=== PATIENT | female | born 1995 | race Caucasian/White ===

== ENCOUNTER → 2017-09-27 | Outpatient (CLI) | payer OTHER ==
--- NOTE | 2017-09-27 12:43 | US ---
EXAMINATION TYPE: US OB <= 14 wk fetus DATE OF EXAM: 09/27/2017 COMPARISON: NONE CLINICAL HISTORY: Z36 CONFIRM DATES AND VIABILITY. Dates EXAM PERFORMED: Transabdominal (TA) EXAM MEASUREMENTS: GESTATIONAL AGE / DATING Dates by LMP: (9 weeks/6 days) EDC: 04/26/2018 Dates by Current Scan: (9 weeks/4 days) EDC: 04/28/2018 MATERNAL ANATOMY Uterus: 12.3 x 6.3 x 5.8 cm Right Ovary: 2.5 x 1.4 x 1.5 cm Left Ovary: 2.7 x 2.0 x 2.4 cm Post CDS / Adnexa: no free fluid Presence of free fluid: no Presence of corpus luteal cyst: left ovarian hypoechoic lesion with peripheral flow =1.7 x 1.5 x 1.3 cm Presence of subchorionic bleed: no GESTATION / SURVEY CRL: 2.7 cm (9 weeks/4 days) MSD: seen, not measured Yolk Sac (normal less than 6mm): 3.7 mm Heart Rate: 172 bpm Rhythm: Normal IUP: Viable IUP Date of LMP: 07/20/2017, G1 Beta HcG (if available): Not available at this time Live single IUP measuring 9 weeks 4 days IMPRESSION: Single intrauterine gestation estimated at 9 weeks 4 days gestation based on crown-rump length. Cardi ac activity measures 172 bpm.
== END | disposition home or self-care (01) ==
LOC: RADUSWWP 08:18
PROVIDERS: ATTEND Obstetrics & Gynecology
DX: Z36.89 Encounter for other specified antenatal screening (principal); Z3A.09 9 weeks gestation of pregnancy
CPT/HCPCS: 76801

== ENCOUNTER 2018-04-22 06:35 | Inpatient (IN) | payer OTHER ==
[2018-04-22] MEDS ORDERED: CARBOPROST TROMETHAMINE 250 MCG/ML 1 ML AMP IM PRN (06:49)
[2018-04-22] MEDS ORDERED: TERBUTALINE 1 MG/ML VIAL SQ PRN (06:49)
[2018-04-22] MEDS ORDERED: METHYLERGONOVINE 0.2 MG/ML 1 ML AMP IM PRN (06:49)
[2018-04-22] MEDS ORDERED: OXYTOCIN 10 UNIT/ML 1 ML VIAL IM PRN (06:49)
[2018-04-22] MEDS ORDERED: LIDOCAINE 0.5% (PF) 5 MG/ML (50 ML SDV) SQ PRN (06:49)
[2018-04-22] MEDS ORDERED: OXYTOCIN 20 UNITS/1000 ML NS 1,000 ML IV SCH (07:00)
[2018-04-22] MEDS: LACTATED RINGERS 1,000 ML IV SCH ×3 (07:00→16:56)
[2018-04-22 07:11] LABS: Basophils # (A) 0.1 k/uL (0-0.2); Basophils % (A) 1 %; Eosinophils # (A) 0.1 k/uL (0-0.7); Eosinophils % (A) 1 %; HCT 33.2 % (34.0-46.0); HGB 11.3 gm/dL (11.4-16.0); Lymphocytes # (A) 1.9 k/uL (1.0-4.8); Lymphocytes % (A) 17 %; MCHC 34.1 g/dL (31.0-37.0); MCV 93.9 fL (80.0-100.0); Mean Platelet Volume 7.8; Monocytes # (A) 0.6 k/uL (0-1.0); Monocytes % (A) 6 %; Neutrophils # (A) 8.6 k/uL (1.3-7.7); Neutrophils % (A) 75 %; Platelet Count 215 k/uL (150-450); RBC 3.53 m/uL (3.80-5.40); RDW 12.7 % (11.5-15.5); WBC 11.4 k/uL (4.0-11.0)
[2018-04-22 07:32] VITALS: BMI 27.6
[2018-04-22] MEDS ORDERED: ROPIVACAINE 100 MG, fentaNYL (PF) 200 MCG in SODIUM CHLORIDE 0.9% 76 ML EPIDURAL ONE (14:39)
[2018-04-22] MEDS ORDERED: diphenhydrAMINE 50 MG/ML 1 ML VIAL IVP PRN ×2 (17:47)
[2018-04-22] MEDS ORDERED: LANOLIN CREAM 5 GM TUBE TOPICAL PRN (17:47)
[2018-04-22] MEDS ORDERED: BENZOCAINE/MENTHOL SPRAY 1 GM/SPRAY AEROSOL TOPICAL PRN (17:47)
[2018-04-22] MEDS ORDERED: WITCH HAZEL 1 EACH MED..PAD TOPICAL PRN (17:47)
[2018-04-22] MEDS ORDERED: diphenhydrAMINE 50 MG CAP PO PRN (17:47)
[2018-04-22] MEDS ORDERED: HYDROCORTISONE 2.5% RECTAL CREAM 30 GM TUBE RECTAL PRN (17:47)
[2018-04-22] MEDS ORDERED: ACETAMINOPHEN TAB 325 MG TAB PO PRN (17:47)
[2018-04-22] MEDS ORDERED: diphenhydrAMINE 25 MG CAP PO PRN (17:47)
[2018-04-22] MEDS ORDERED: SIMETHICONE 80 MG CHEWABLE PO PRN (17:47)
[2018-04-22] MEDS ORDERED: ZOLPIDEM 5 MG TAB PO PRN (17:47)
--- NOTE | 2018-04-22 17:50 | P.HPOB ---
History of Present Illness H&P Date: 04/22/18 Chief Complaint: Intrauterine at term: Induction of labor Summer is a 22-year-old at 39 weeks gestation arise for induction of labor. Her course has been relatively uncomplicated and she is feeling well at this time. Pertinent labs did include A+ blood type Rh and it was negative, rubella was immune, hepatitis B surface antigen was negative as was RPR and HIV. Her group B strep was also negative. In seeing her this morning she was dilated to 2 cm 80% effaced and -2 station. Artificial rupture membranes was performed and clear fluid is noted. heart tones in the 130s to 140s and category 1 tracing is noted. Anticipate spontaneous vaginal delivery and she anticipates use of an epidural for analgesia. We'll also use Pitocin for augmentation of labor. Past Medical History Past Medical History: Asthma History of Any Multi-Drug Resistant Organisms: None Reported Past Surgical History: No Surgical Hx Reported Past Psychological History: ADD/ADHD Smoking Status: Former smoker Past Alcohol Use History: None Reported Past Drug Use History: None Reported - Past Family History Mother Family Medical History: No Reported History Medications and Allergies Home Medications Medication Instructions Recorded Confirmed Type Pnv No.111/Iron/Folate/Dha 1 each PO DAILY 04/22/18 04/22/18 History [Nestabs One Softgel] Allergies Allergy/AdvReac Type Severity Reaction Status Date / Time No Known Allergies Allergy Verified 04/22/18 06:47 Exam Osteopathic Statement: *. No significant issues noted on an osteopathic structural exam other than those noted in the History and Physical/Consult. Vital Signs Temp Pulse Resp BP Pulse Ox 04/22/18 06:46 98 F 86 16 118/66 97 Intake and Output 04/22/18 04/22/18 04/22/18 06:59 14:59 22:59 Output Total 400 Balance -400 Output: Urine 400 Other: # Voids 1 Weight 77.564 kg - OBG Physical Exam Breast: both: normal (no masses) Abdomen: bowel sounds normal, no diffuse tenderness, no bruit present, no guarding noted, no hepatomegaly, no splenomegaly, no mass Vulva: both: normal Vagina: normal moisture, no discharge Cervix: no lesion, no discharge Uterus: normal size, normal contour Adnexa: both: normal Anus/Rectum: normal perianal skin, no rectal mass, no hemorrhoids, heme negative Results Result Diagrams: 04/22/18 06:50 Abnormal Lab Results - Last 24 Hours (Table) 04/22/18 Range/Units 06:50 WBC 11.4 H (4.0-11.0) k/uL RBC 3.53 L (3.80-5.40) m/uL Hgb 11.3 L (11.4-16.0) gm/dL Hct 33.2 L (34.0-46.0) % Neutrophils # 8.6 H (1.3-7.7) k/uL
--- NOTE | 2018-04-22 17:52 | P.PROBDLV ---
Vaginal Delivery Note - . Vaginal Delivery Note: Patient progressed complete and pushed with spontaneous vaginal delivery of a viable male over a secondary perineal laceration. Following delivery of the head anterior shoulder was difficult to bring down underneath the pubic bone, however I don't really think it was a true shoulder dystocia it was more a positional issue with the baby and the weight that the posterior shoulder was angled in the vagina. I did go posteriorly and move the posterior shoulder slightly which allowed the anterior shoulder easily be delivered underneath the pubic bone followed by the remainder the baby. Mouth nares were then bulb suctioned and baby was placed on mother's abdomen where the umbilical cord was allowed to pulsate for 30 seconds prior to clamping and cutting. Nursery personnel was then present to assume to assume care. Placenta was then delivered intact and Pitocin was added to the IV. Second-degree midline laceration was then repaired with 3-0 Vicryl in a running fashion. Following Xylocaine for analgesia. scores were 9 and 9 at one and 5 minutes respectfully and the weight was 7 lbs. 5 oz. Both mother and baby are stable following delivery.
[2018-04-22] MEDS: IBUPROFEN 600 MG TAB PO PRN (19:39)
[2018-04-22] MEDS: SENNOSIDES-DOCUSATE SODIUM 1 EACH TAB PO SCH (19:39)
[2018-04-23] MEDS: IBUPROFEN 600 MG TAB PO PRN ×2 (08:04→18:55)
[2018-04-23] MEDS: SENNOSIDES-DOCUSATE SODIUM 1 EACH TAB PO SCH ×2 (08:04→21:36)
--- NOTE | 2018-04-23 10:17 | P.PNOBGVD ---
Subjective - Subjective Principal diagnosis: post day 1 Interval history: doing very well. all questions answered. Patient reports: Reports appetite normal, Reports voiding normally, Reports pain well controlled, Reports ambulating normally : doing well Objective - Latest Vital Signs Latest vital signs: Vital Signs Temp Pulse Resp BP 04/23/18 07:51 98.5 F 94 16 131/66 04/23/18 04:00 98.7 F 82 16 116/69 04/23/18 00:00 98.6 F 79 16 108/68 04/22/18 20:00 97.7 F 83 16 126/68 04/22/18 19:58 97.7 F 80 16 126/68 04/22/18 19:28 97.7 F 80 16 131/65 04/22/18 18:57 100 16 125/59 04/22/18 18:43 99.3 F 99 16 129/66 04/22/18 18:28 94 20 116/58 04/22/18 18:13 93 16 115/56 04/22/18 17:58 103 H 16 122/63 Intake and Output 04/22/18 04/23/18 04/23/18 22:59 06:59 14:59 Output Total 550 Balance -550 Output: Urine 400 Estimated Blood Loss 150 Other: # Voids 1 1 1 - Exam Lungs: bilateral: normal Chest: Normal S1, Normal S2 Extremities: Present: normal Abdomen: Present: normal appearance, soft Uterus: Present: normal, firm
[2018-04-24 01:29] VITALS: RESP 18
[2018-04-24] MEDS: SENNOSIDES-DOCUSATE SODIUM 1 EACH TAB PO SCH (08:51)
[2018-04-24] MEDS: IBUPROFEN 600 MG TAB PO PRN (08:51)
--- NOTE | 2018-04-24 09:30 | P.DS ---
Providers Date of admission: 04/22/18 06:35 Expected date of discharge: 04/24/18 Attending physician: Rene Sharp Primary care physician: Stated None Hospital Course: Summary is doing very well day 2. She is ambulating, voiding, and she is tolerating her diet. She voices no complaints. Vital signs are stable and afebrile. Heart regular, lungs clear, extremities are without pain. Abdomen is soft uterus is firm and lochia is reported to be light. Prescription for Motrin has been report to the pharmacy and she'll follow up with me in 6 weeks. Discharge instructions thoroughly reviewed. She is stable for discharge this time. Patient Condition at Discharge: Good Plan - Discharge Summary New Discharge Prescriptions: New Ibuprofen [Motrin] 600 mg PO Q6HR PRN #30 tab PRN Reason: Pain No Action Pnv No.111/Iron/Folate/Dha [Nestabs One Softgel] 1 each PO DAILY Discharge Medication List Pnv No.111/Iron/Folate/Dha [Nestabs One Softgel] 1 each PO DAILY 04/22/18 [ History] Ibuprofen [Motrin] 600 mg PO Q6HR PRN #30 tab 04/24/18 [Rx] Follow up Appointment(s)/Referral(s): Rene Sharp DO [Doctor of Osteopathic Medicine] - 6 Weeks Activity/Diet/Wound Care/Special Instructions: No heavy lifting, limit stairs and driving, and pelvic rest. If any high temperatures, heavy bleeding, or severe pain call my office Discharge Disposition: HOME SELF-CARE
[2018-04-24 11:04] VITALS: BP 125/81; PULSE 71; TEMP 97.6
== END 2018-04-24 15:37 | disposition home or self-care (01) | DRG 775 ==
LOC: 4FBP 06:35
PROVIDERS: ADMIT Obstetrics & Gynecology; ATTEND Obstetrics & Gynecology
PROC: 10E0XZZ Delivery of Products of Conception, External Approach (ICD-10-PCS; principal; 2018-04-22)
PROC: 0KQM0ZZ Repair Perineum Muscle, Open Approach (ICD-10-PCS; 2018-04-22)
PROC: 00HU33Z Insertion of Infusion Device into Spinal Canal, Percutaneous Approach (ICD-10-PCS; 2018-04-22)
PROC: 3E0R3BZ Introduction of Anesthetic Agent into Spinal Canal, Percutaneous Approach (ICD-10-PCS; 2018-04-22)
DX: O99.344 Other mental disorders complicating childbirth (principal); Z37.0 Single live birth; F90.9 Attention-deficit hyperactivity disorder, unspecified type; O70.1 Second degree perineal laceration during delivery; Z87.09 Personal history of other diseases of the respiratory system; Z3A.39 39 weeks gestation of pregnancy; Z87.891 Personal history of nicotine dependence
CPT/HCPCS: 85025; 86850; 86900; 86901

== ENCOUNTER 2018-06-05 07:53 | Day surgery (SDC) | payer OTHER ==
[2018-06-04 09:09] VITALS: BMI 25.3
[~2018-06-05 07:53] MED LIST: DEXAMETHASONE SOD PHOSPHATE 10 MG/ML 1 ML VIAL IV ONE; HEPARIN SODIUM,PORCINE 5,000 UNIT/ML 1 ML VIAL SQ ONE; HYDROmorphone 0.5 MG/0.5 ML SYRINGE IVP PRN; LIDOCAINE 1% 20 ML VIAL (10MG/ML) FOR IV START INTRADERMA PRN; MIDAZOLAM 2 MG/2 ML VIAL IV PRN; ONDANSETRON 4 MG/2 ML VIAL IVP ONE; SCOPOLAMINE 1.5MG/72HR PATCH TRANSDERM ONE; ceFAZolin IN SWFI 2 GM/20 ML SYRINGE IVP ONE
[2018-06-05] MEDS: LACTATED RINGERS 1,000 ML IV SCH ×2 (08:30→09:46)
--- NOTE | 2018-06-05 08:48 | P.GSHP ---
History of Present Illness H&P Date: 06/05/18 Chief Complaint: Right upper quadrant pain This is a 22-year-old female who's had complaints of right quadrant pain. She is recently worked up and found have gallstones. She does today for laparoscopic cholecystectomy. Past Medical History Past Medical History: Asthma Additional Past Medical History / Comment(s): POST - BABY BORN 04/22/18., STATES HOSPITALIZED IN THE LAST MONTH AT [facility] FOR GALL BLADDER PAIN., ASTHMA (NO RX). History of Any Multi-Drug Resistant Organisms: None Reported Past Surgical History: No Surgical Hx Reported Additional Past Anesthesia/Blood Transfusion Reaction / Comment(s): PATIENT HAS NEVER RECEIVED ANESTHESIA. Past Psychological History: ADD/ADHD Smoking Status: Former smoker Past Alcohol Use History: None Reported Additional Past Alcohol Use History / Comment(s): QUIT SMOKING 10 MONTHS AGO . SMOKED 1 PPD OR LESS. SMOKED FOR 5 YEARS OFF AND ON. Past Drug Use History: None Reported - Past Family History Mother Family Medical History: Cancer Medications and Allergies Home Medications Medication Instructions Recorded Confirmed Type Acetaminophen Tab [Tylenol Tab] 650 mg PO DIRECTED 06/04/18 06/05/18 History Dicyclomine [Bentyl] 20 mg PO QID 06/04/18 06/05/18 History Famotidine 20 mg PO BID 06/04/18 06/05/18 History Ibuprofen [Motrin Ib] 400 mg PO DIRECTED PRN 06/04/18 06/05/18 History Allergies Allergy/AdvReac Type Severity Reaction Status Date / Time No Known Allergies Allergy Verified 06/04/18 08:44 Surgical - Exam Vital Signs Temp Pulse Resp BP Pulse Ox 97.2 F L 74 18 112/54 98 06/05/18 08:17 06/05/18 08:17 06/05/18 08:17 06/05/18 08:17 06/05/18 08:17 - General well developed, no distress - Eyes PERRL - ENT normal pinna - Neck no masses - Respiratory normal expansion - Cardiovascular Rhythm: regular - Abdomen Abdomen: soft Assessment and Plan Assessment: History of cholecystitis and cholelithiasis. Patient will undergo laparoscopic cholecystectomy.
[2018-06-05] MEDS ORDERED: BUPIVACAIN-EPI 0.25%-1:200,000 30 ML VIAL SQ ONE ×3 (08:57→10:03)
[2018-06-05] MEDS ORDERED: KETOROLAC 30 MG/ML 1 ML VIAL ONE (09:47)
[2018-06-05] MEDS ORDERED: fentaNYL (PF) 50 MCG/ML 2 ML AMP ONE (09:47)
[2018-06-05] MEDS ORDERED: NEOSTIGMINE 1 MG/ML 10 ML VIAL ONE (09:47)
[2018-06-05] MEDS ORDERED: PROPOFOL 10 MG/ML 20 ML VIAL IV ONE (09:47)
[2018-06-05] MEDS ORDERED: MEPERIDINE 50 MG/ML SYRINGE ONE (09:47)
[2018-06-05] MEDS ORDERED: MIDAZOLAM 2 MG/2 ML VIAL ONE (09:47)
[2018-06-05] MEDS ORDERED: GLYCOPYRROLATE 0.2 MG/ML 2 ML VIAL ONE (09:47)
[2018-06-05] MEDS ORDERED: ROCURONIUM BROMIDE 10 MG/ML 10 ML VIAL IV ONE (09:47)
[2018-06-05] MEDS ORDERED: LIDOCAINE 1% INJ 10MG/ML (20 ML MDV) ONE (09:47)
--- NOTE | 2018-06-05 10:29 | P.OP ---
Date of Procedure: 06/05/18 Preoperative Diagnosis: Cholecystitis Cholelithiasis Postoperative Diagnosis: Cholecystitis Cholelithiasis Procedure(s) Performed: Laparoscopic cholecystectomy Anesthesia: PENG Surgeon: Arik Brown Estimated Blood Loss (ml): 5 Pathology: other (Gallbladder) Condition: stable Disposition: PACU Description of Procedure: The patient was placed on the operating table. The patient received a general endotracheal tube anesthesia. The patients abdomen was prepped and draped in the usual sterile fashion. Through an infraumbilical stab incision, the fascia of the anterior abdominal wall was grasped with a pair of Kochers and then the Veress needle was placed in the peritoneal cavity. Position of the Veress needle was confirmed with positive drop test. The abdomen was then insufflated. After adequate insufflation, the 10 mm trocar was placed in the peritoneal cavity. Following this the laparoscope was placed in the peritoneal cavity. The patient was placed in the head-up, right side up position and then a 5 mm trocar was placed in the right lateral and right subcostal position under direct visualization. A 8 mm trocar was placed in the epigastric position. The gallbladder was grasped in the fundus and infundibulum. Traction on the gallbladder was placed in the lateral and the cephalad positions. The triangle of Calot was visualized.. The cystic duct was bluntly dissected until the union of the cystic duct and common bile duct was seen. The cystic duct was then divided and sealed with the Harmonic scissors. A PDS Endoloop was then placed throughout the cystic duct stump. The cystic artery divided and sealed with the Harmonic scissors. The gallbladder was then removed from the liver bed using Harmonic scissors. The gallbladder was then extracted through the epigastric port site. Operative field was checked for any bleeding spots and Harmonic scissors was used to coagulate the liver bed. The abdomen was irrigated. The trocars were removed. The skin was closed using interrupted 3-0 Vicryl suture. Dermabond dressing were applied. The patient tolerated the procedure well.
[2018-06-05 10:36] VITALS: TEMP 96.8
[2018-06-05 10:46] VITALS: RESP 16
[2018-06-05] MEDS ORDERED: HYDROcodone/APAP 7.5-325MG 1 EACH TAB PO ONE (11:30)
[2018-06-05 12:18] VITALS: BP 103/60; PULSE 68
== END 2018-06-05 12:27 | disposition home or self-care (01) ==
LOC: OR 07:53
PROVIDERS: ATTEND Surgery
DX: K80.10 Calculus of gallbladder with chronic cholecystitis without obstruction (principal); J45.909 Unspecified asthma, uncomplicated; F90.9 Attention-deficit hyperactivity disorder, unspecified type; K21.9 Gastro-esophageal reflux disease without esophagitis; Z87.891 Personal history of nicotine dependence; Z79.899 Other long term (current) drug therapy
CPT/HCPCS: 81025; 88304; 47562; J2250; J1644; J1100; J2710; J2175; J2405; J2001; J3010; J1885; J2704; J0690

== ENCOUNTER → 2019-03-16 | Outpatient (CLI) | payer OTHER | LOC: LABWHC1 10:24 | PROVIDERS: ATTEND Obstetrics & Gynecology | DX: N92.6 Irregular menstruation, unspecified (principal) | CPT/HCPCS: 36415; 84702 ==

== ENCOUNTER → 2019-07-20 | Outpatient (CLI) | payer OTHER | END | disposition home or self-care (01) | LOC: LABWHC1 11:18 | PROVIDERS: ATTEND Obstetrics & Gynecology | DX: N91.2 Amenorrhea, unspecified (principal) | CPT/HCPCS: 36415; 84702 ==

== ENCOUNTER 2024-06-22 18:39 | Outpatient (CLI) | payer OTHER ==
[2024-06-22 19:45] VITALS: BP 109/56; PULSE 71; RESP 16; TEMP 97.6
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
== END 2024-06-22 19:32 | disposition home or self-care (01) ==
LOC: FBPOP 18:39
PROVIDERS: ATTEND Obstetrics & Gynecology Obstetrics
DX: O9A.212 Injury, poisoning and certain other consequences of external causes complicating pregnancy, second trimester (principal); Z3A.20 20 weeks gestation of pregnancy; W01.0XXA Fall on same level from slipping, tripping and stumbling without subsequent striking against object, initial encounter; Z87.891 Personal history of nicotine dependence
CPT/HCPCS: 99213

== ENCOUNTER 2024-10-30 05:45 | Inpatient (IN) | payer OTHER ==
[2024-10-30] MEDS ORDERED: miSOPROStoL 200 MCG TAB PO PRN (05:47)
[2024-10-30] MEDS ORDERED: CARBOPROST TROMETHAMINE 250 MCG/ML 1 ML AMP IM PRN (05:47)
[2024-10-30] MEDS ORDERED: TRANEXAMIC 1,000 MG/100ML-NACL 1,000 MG in EMPTY BAG 1 BAG IV PRN (05:47)
[2024-10-30] MEDS ORDERED: METHYLERGONOVINE 0.2 MG/ML 1 ML AMP IM PRN (05:47)
[2024-10-30] MEDS ORDERED: OXYTOCIN 10 UNIT/ML 1 ML VIAL IM PRN (05:47)
[2024-10-30] MEDS ORDERED: miSOPROStoL 200 MCG TAB RECTAL PRN (05:47)
[2024-10-30] MEDS ORDERED: LIDOCAINE 0.5% (PF) 5 MG/ML (50 ML SDV) SQ PRN (05:47)
[2024-10-30] MEDS ORDERED: TERBUTALINE 1 MG/ML VIAL SQ PRN (05:47)
[2024-10-30] MEDS: LACTATED RINGERS 1,000 ML IV SCH (06:08)
[2024-10-30 06:22] LABS: Basophils # (A) 0.1 k/uL (0-0.2); Basophils % (A) 1 %; Eosinophils # (A) 0.1 k/uL (0-0.7); Eosinophils % (A) 1 %; HCT 32.4 % (34.0-46.0); Lymphocytes # (A) 2.8 k/uL (1.0-4.8); Lymphocytes % (A) 28 %; MCH 30.9 pg (25.0-35.0); MCV 90.8 fL (80.0-100.0); Mean Platelet Volume 9.3; Monocytes # (A) 0.6 k/uL (0-1.0); Monocytes % (A) 6 %; Neutrophils # (A) 6.3 k/uL (1.3-7.7); Neutrophils % (A) 63 %; Platelet Count 248 k/uL (150-450); RBC 3.57 m/uL (3.80-5.40); RDW 12.8 % (11.5-15.5); WBC 9.9 k/uL (3.8-10.6)
[2024-10-30] MEDS: OXYTOCIN 30 UNITS/500 ML NS 30 UNIT in SALINE 1 500ML.BAG IV SCH (06:24)
[2024-10-30 07:38] LABS: Amphetamine Screen,Urine Not Detected (NotDetected); Barbiturate Screen,Urine Not Detected (NotDetected); Benzodiazepines Screen,Urine Not Detected (NotDetected); Cocaine Screen,Urine Not Detected (NotDetected); Methadone Screen, Urine Not Detected (NotDetected); Opiate Screen,Urine Not Detected (NotDetected); Oxycodone Screen, Urine Not Detected (NotDetected); Phencyclidine Screen,Urine Not Detected (NotDetected); Tricyclic Antidepressant,Urine Not Detected (NotDetected); Urn Cannabinoid Scrn Not Detected (NotDetected)
--- NOTE | 2024-10-30 10:08 | P.HPOB ---
History of Present Illness H&P Date: 10/30/24 Chief Complaint: induction of labor 29 year old G2, P1 presents at 40 weeks gestation for induction of labor. Her cervix is 1 to 2 cm dilated, 70% effaced, -2 station. heart tones category 1. Review of Systems All systems: negative Constitutional: Denies chills, Denies fever Eyes: denies blurred vision, denies pain Ears, nose, mouth and throat: Denies headache, Denies sore throat Cardiovascular: Denies chest pain, Denies shortness of breath Respiratory: Denies cough Gastrointestinal: Denies abdominal pain, Denies diarrhea, Denies nausea, Denies vomiting Genitourinary: Denies dysuria, Denies hematuria Musculoskeletal: Denies myalgias Integumentary: Denies pruritus, Denies rash Neurological: Denies numbness, Denies weakness Psychiatric: Denies anxiety, Denies depression Endocrine: Denies fatigue, Denies weight change Past Medical History Past Medical History: Asthma History of Any Multi-Drug Resistant Organisms: None Reported Past Surgical History: Appendectomy, Cholecystectomy Past Anesthesia/Blood Transfusion Reactions: No Reported Reaction Additional Past Anesthesia/Blood Transfusion Reaction / Comment(s): PATIENT HAS NEVER RECEIVED ANESTHESIA. Past Psychological History: ADD/ADHD Smoking Status: Former smoker Past Alcohol Use History: None Reported Additional Past Alcohol Use History / Comment(s): QUIT SMOKING 10 MONTHS AGO . SMOKED 1 PPD OR LESS. SMOKED FOR 5 YEARS OFF AND ON. Past Drug Use History: None Reported - Past Family History Mother Family Medical History: Cancer Medications and Allergies Home Medications Medication Instructions Recorded Confirmed Type No Known Home Medications 06/22/24 10/30/24 History Allergies Allergy/AdvReac Type Severity Reaction Status Date / Time No Known Allergies Allergy Verified 10/30/24 05:46 Exam Osteopathic Statement: *. No significant issues noted on an osteopathic structural exam other than those noted in the History and Physical/Consult. Vital Signs Temp Pulse Resp BP Pulse Ox 10/30/24 05:59 96.2 F L 80 18 122/58 96 Intake and Output 10/29/24 10/30/24 10/30/24 22:59 06:59 14:59 Other: # Voids 1 Weight 88.451 kg Heart: Regular rate and rhythm Lungs: Clear to auscultation bilaterally Abdomen: Soft, nontender Extremities: Negative Homans sign Results Result Diagrams: 10/30/24 06:03 Abnormal Lab Results - Last 24 Hours (Table) 10/30/24 Range/Units 06:03 RBC 3.57 L (3.80-5.40) m/uL Hgb 11.0 L (11.4-16.0) gm/dL Hct 32.4 L (34.0-46.0) % Assessment and Plan (1) Elective induction of labor planned Current Visit: Yes Status: Acute Code(s): [id number] - SNOMED Code(s): 405 388892 Plan: 1. Induction of labor with amniotomy and Pitocin 2. Anticipate normal vaginal delivery
[2024-10-30] MEDS ORDERED: fentaNYL (PF) 50 MCG/ML 5 ML AMP ONE (11:52)
[2024-10-30] MEDS ORDERED: SODIUM CHLORIDE 0.9% 250 ML BAG ONE (11:52)
[2024-10-30] MEDS ORDERED: ROPIVACAINE 5 MG/ML 30 ML VIAL ONE (11:52)
[2024-10-30] MEDS ORDERED: ZOLPIDEM 5 MG TAB PO PRN (18:00)
[2024-10-30] MEDS ORDERED: OXYTOCIN 30 UNITS/500 ML NS 30 UNIT in SALINE 1 500ML.BAG IV SCH (18:00)
[2024-10-30] MEDS ORDERED: diphenhydrAMINE 50 MG CAP PO PRN (18:00)
[2024-10-30] MEDS ORDERED: diphenhydrAMINE 50 MG/ML 1 ML VIAL IVP PRN ×2 (18:00)
[2024-10-30] MEDS ORDERED: diphenhydrAMINE 25 MG CAP PO PRN (18:00)
[2024-10-30] MEDS ORDERED: SIMETHICONE 80 MG CHEWABLE PO PRN (18:00)
[2024-10-30] MEDS ORDERED: LANOLIN CREAM 1 GM TUBE TOPICAL PRN (18:00)
[2024-10-30] MEDS ORDERED: HYDROCORTISONE 2.5% RECTAL CREAM 30 GM TUBE RECTAL PRN (18:00)
--- NOTE | 2024-10-30 18:11 | P.PROBDLV ---
Vaginal Delivery Note - . Vaginal Delivery Note: Date of Service 10/30/2024 29 year old G2, P1 presents at 40 weeks gestation for induction of labor. Her cervix is 1 to 2 cm dilated, 70% effaced, -2 station. heart tones category 1. Pitocin was started and amniotomy performed at 7:33 AM, clear fluid noted. She progressed slowly throughout the day as the Pitocin was increased. He had an epidural and was comfortable. Her cervix was completely dilated at 1726. She pushed, the viable female over intact perineum under epidural anesthesia at 1748. Head delivered OA, anterior shoulder delivered under dark guidance followed with posterior shoulder and rest of body. Nose and mouth bulb suction, clamped and cut, infant placed on mother's abdomen. Apgars 9, 9, weight pending. Placenta delivered spontaneously, intact three-vessel cord at 1750. Vagina, cervix, perineum inspected. First-degree midline laceration was repaired with 3-0 Vicryl. Estimated blood loss 150 mL. Mother and baby in stable condition.
[2024-10-30] MEDS: BENZOCAINE/MENTHOL SPRAY 1 GM/SPRAY AEROSOL TOPICAL PRN (18:16)
[2024-10-30] MEDS: IBUPROFEN 800 MG TAB PO SCH (19:03)
[2024-10-30] MEDS: SENNOSIDES-DOCUSATE SODIUM 1 EACH TAB PO SCH (19:15)
[2024-10-30 20:25] VITALS: RESP 16
[2024-10-31] MEDS: ACETAMINOPHEN TAB 500 MG TAB PO SCH (00:43)
[2024-10-31 04:47] LABS: Basophils % (A) 0 %; Eosinophils # (A) 0.1 k/uL (0-0.7); Eosinophils % (A) 0 %; HCT 28.7 % (34.0-46.0); HGB 9.9 gm/dL (11.4-16.0); Lymphocytes # (A) 2.4 k/uL (1.0-4.8); Lymphocytes % (A) 13 %; MCH 30.9 pg (25.0-35.0); MCHC 34.3 g/dL (31.0-37.0); MCV 90.2 fL (80.0-100.0); Mean Platelet Volume 9.4; Monocytes # (A) 1.1 k/uL (0-1.0); Monocytes % (A) 6 %; Neutrophils # (A) 15.1 k/uL (1.3-7.7); Neutrophils % (A) 80 %; Platelet Count 217 k/uL (150-450); RBC 3.18 m/uL (3.80-5.40); RDW 12.6 % (11.5-15.5); WBC 18.9 k/uL (3.8-10.6)
--- NOTE | 2024-10-31 10:26 | P.PNOBGVD ---
Subjective - Subjective Principal diagnosis: Status postnormal vaginal delivery day #1 Interval history: Seen and examined. Denies nausea, vomiting, chest pain, shortness of breath or calf pain. Patient reports: Reports appetite normal, Reports voiding normally, Reports pain well controlled, Reports ambulating normally [place]: doing well Objective - Latest Vital Signs Latest vital signs: Vital Signs Temp Pulse Pulse Resp BP Pulse Ox 10/31/24 08:40 98.2 F 86 16 100/53 10/31/24 06:00 98.0 F 72 16 112/58 10/30/24 22:00 98.7 F 76 16 115/61 10/30/24 20:00 81 16 118/59 10/30/24 19:45 81 18 112/56 10/30/24 19:30 98.3 F 80 18 126/56 10/30/24 19:15 88 16 137/75 10/30/24 19:00 95 16 122/63 98 10/30/24 18:45 91 18 126/70 10/30/24 18:30 82 16 117/60 100 10/30/24 18:15 95 18 130/59 10/30/24 18:00 99.6 F 96 18 125/58 100 Intake and Output 10/30/24 10/31/24 10/31/24 22:59 06:59 14:59 Intake Total 189.867 Output Total 272 Balance -82.133 Intake: Intake, IV Titration 189.867 Amount Oxytocin 30 Units/500 ml 189.867 Ns 30 unit In Saline 1 500ml.bag @ Per Protocol IV .Q0M [facility] Rx#:[id number] Output: Output, Estimated Blood 150 Loss Amount Output, Quantitative 122 Blood Loss Other: # Voids 1 1 1 - Exam Lungs: bilateral: normal Chest: Normal S1, Normal S2 Extremities: Present: normal Abdomen: Present: normal appearance, soft Uterus: Present: normal, firm - Labs Labs: Abnormal Lab Results - Last 24 Hours (Table) 10/31/24 Range/Units 03:58 WBC 18.9 H (3.8-10.6) k/uL RBC 3.18 L (3.80-5.40) m/uL Hgb 9.9 L (11.4-16.0) gm/dL Hct 28.7 L (34.0-46.0) % Neutrophils # 15.1 H (1.3-7.7) k/uL Monocytes # 1.1 H (0-1.0) k/uL Assessment and Plan (1) Elective induction of labor planned Current Visit: Yes Status: Resolved Code(s): [id number] - SNOMED Code(s): 904849244 (2) Status post normal vaginal delivery Current Visit: Yes Status: Acute Code(s): [id number] - SNOMED Code(s): 362164299 Plan: 1. Continue care
[2024-11-01 08:35] VITALS: BP 109/67; PULSE 66; TEMP 98.1
--- NOTE | 2024-11-01 11:20 | P.DS ---
Providers Date of admission: 10/30/24 05:45 Expected date of discharge: 11/01/24 Attending physician: Luz Maria Contreras Primary care physician: Stated None - Discharge Diagnosis(es) (1) Elective induction of labor planned Current Visit: Yes Status: Resolved (2) Status post normal vaginal delivery Current Visit: Yes Status: Acute Hospital Course: She presented for induction of labor and underwent a normal vaginal delivery. course has been uneventful. She denies nausea, vomiting, chest pain, shortness of breath or calf pain. Patient will be discharged home day #2 in stable condition to follow-up with me in 6 weeks. Currently the baby is in to go to her brother's house since she is having a hard time with housing but as soon as housing comes through the baby will go to her. Plan - Discharge Summary New Discharge Prescriptions: New Ibuprofen [Motrin] 800 mg PO Q8H #30 tab Discharge Medication List Ibuprofen [Motrin] 800 mg PO Q8H #30 tab 11/01/24 [Rx] Follow up Appointment(s)/Referral(s): Luz Maria Contreras DO [Doctor of Osteopathic Medicine] - 12/14/24 1:30 pm Discharge Disposition: HOME SELF-CARE
== END 2024-11-01 14:35 | disposition home or self-care (01) | DRG 560 ==
LOC: 4FBP 05:45
PROVIDERS: ADMIT Obstetrics & Gynecology; ATTEND Obstetrics & Gynecology
PROC: 10E0XZZ Delivery of Products of Conception, External Approach (ICD-10-PCS; principal; 2024-10-30)
PROC: 0HQ9XZZ Repair Perineum Skin, External Approach (ICD-10-PCS; 2024-10-30)
PROC: 3E033VJ Introduction of Other Hormone into Peripheral Vein, Percutaneous Approach (ICD-10-PCS; 2024-10-30)
DX: O80 Encounter for full-term uncomplicated delivery (principal); Z37.0 Single live birth; O70.0 First degree perineal laceration during delivery; Z87.891 Personal history of nicotine dependence; Z3A.40 40 weeks gestation of pregnancy
CPT/HCPCS: 80306; 85025; 86850; 86900; 86901